=== PATIENT | male | born 1955 | race Caucasian/White ===

== ENCOUNTER 2018-09-12 19:57 | Emergency (ER) | payer OTHER, SELFPAY ==
[2018-09-12] VITALS (20 sets, daily range): BP systolic 110–136; BP diastolic 68–82; PULSE 91–105; RESP 14–31; TEMP 36.4; O2SAT 92–96
--- NOTE | 2018-09-12 20:22 | ED.GENADUL_ITS ---
Discharge Plan Disposition Patient Disposition: AGAINST MEDICAL ADVICE Condition: Stable Discharge Details Chief Complaint: Dizzy/Sync Clinical Impression: Near syncope, Hypotension, Prolonged QT interval, Dehydration, Hypokalemia, Hypomagnesemia Primary Care Provider: [facility],CT ED Provider: Zayra Robbins Home Meds and New Rx's Prescriptions: Continued nortriptyline 50 mg Capsule 50 mg PO HS RF: 0 atorvastatin 40 mg Tablet 40 mg PO DAILY RF: 0 trazodone 100 mg Tablet 300 mg PO DAILY RF: 0 hydrochlorothiazide 25 mg Tablet 25 mg PO DAILY RF: 0 lisinopril 20 mg Tablet 20 mg PO DAILY RF: 0 Discharge Instructions Instructions: Dehydration (ED) Additional Instructions: You are leaving today against medical advice. You may have life threatening medical conditions that may be go undiagnosed or untreated. Drink plenty of fluids and get plenty of rest. Supplement potassium and magnesium in your diet. Call the CT tomorrow to schedule a follow up appointment for re-evaluation and for placement of a zio patch or holter monitor. Return immediately to the emergency department with any worsening or new concerning symptoms. Discharge Data Discharge Physician: Zayra Robbins Medical Decision Making 63-year-old male with a history of hypertension, anxiety and depression who presents for near syncopal episode and hypotension at home tonight. Had an unresponsive episode per in which he was awake and looking in her but not responding to her. He then stood up and had a near syncopal episode for EMS. Systolic blood pressure per EMS 70s. Patient was given 1 L of IV fluids per EMS and his systolic BP improved to 110s. Upon arrival to ED, patient states he feels much better. Patient states he has not eaten much today, took his regular blood pressure medication as directed, gave himself his haloperidol injection, and drink 1 beer. Discussed that all of this together, may have contributed to his low blood pressure. BP on arrival much improved 115/69. Heart rate 100s. Remainder vitals within normal limits. Will place an IV, continue IV fluids, labs, urinalysis, EKG, chest x-ray, CT h ead, lactate. EKG notes a rate of 96, sinus, no acute ST findings. QTc prolonged at 490. QRS 98. 2100 --labs and imaging reviewed. Normal white blood cell count, hemoglobin. Potassium 3. Magnesium 1.6. Lactate 3.8. Troponin negative. Urinalysis notes 5-10 WBCs, negative bacteria, negative leukocyte esterase, negative nitrite. Patient has no urinary symptoms. CT head and chest x-ray negative. Discussed results at length with patient and he is requesting to leave. Discussed with patient that in the setting of syncope, hypotension, prolonged QT, would recommend admission. Patient is from the CT. He is declining [facility] at [facility] Able to obtain an EKG from the CT which noted a prolonged QT at 460 but this QT interval is more prolonged today and this is concerning based on patient's symptom presentation. The risks of and disability due to a serious pathology explained and patient fully understands and was willing to leave. AMA form signed. Patient demonstrates capacity to make decisions. Repeated lactate level or after 2 L IV fluid and is downtrending to 2.1. is at bedside and she feels comfortable with patient not wanting to stay in the hospital. Discussed with patient that we can arrange for a zio patch or Holter monitor at this time but he is declining and stating that [facility] will [facility] to [facility]. He is instructed to return here immediately with any worsening or new concerning symptoms. Medical Records Medical records reviewed: Yes I reviewed the patient's medical records. Imaging Data Radiologic Study: Radiologist's impression: XR Chest, 2 Views EXAM DATE/TIME: 09/12/2018 8:21 PM FINDINGS: Lungs: There is mild atelectasis in the left lung base. Lungs are otherwise clear. Pleural space: Unremarkable. No pleural effusion. No pneumothorax. Heart/Mediastinum: Unremarkable. No cardiomegaly. Bones/joints: No acute skeletal abnormality. IMPRESSION: Negative for acute thoracic pathology. CT Head Without Contrast EXAM DATE/TIME: 09/12/2018 8:21 PM FINDINGS: Brain: Normal. No hemorrhage. No significant white matter disease. No edema. Ventricles: Normal. No ventriculomegaly. Bones/joints: Unremarkable. No acute fracture. Sinuses: Patient is status post prior paranasal sinus surgery. There is mucoperiosteal thickening of the right maxillary sinus. There is mucosal thickening throughout the left maxillary sinus. There is mucosal thickening throughout the ethmoid air cells. Mastoid air cells: Visualized mastoid air cells are unremarkable. No mastoid effusion. Orbits: Unremarkable. Soft tissues: Unremarkable. IMPRESSION: Negative for acute intracranial pathology. Chronic sinusitis, detailed above. Lab Data Lab results reviewed: Yes I reviewed the patient's lab results. 09/12/18 20:25 Urine - Reflex from Ua Urine Culture - Pending Laboratory Tests Range/Units 09/12/18 09/12/18 09/12/18 20:22 20:22 20:22 WBC (4.4-10.8) k/cumm 8.44 RBC (4.50-6.00) m/cumm 4.33 L Hgb (13.5-17.5) g/dL 14.2 Hct (40.0-50.0) % 39.8 L MCV (80-95) fL 91.9 MCH (27.0-33.0) pg 32.8 MCHC (32.0-36.0) g/dL 35.7 RDW (11.8-14.1) % 11.8 Plt Count (130-400) x1000/uL 281 MPV (8.0-11.0) fL 9.7 Immature Gran % 0.7 Neutrophils % 46.2 Lymphocytes % 40.2 Monocytes % 10.1 Eosinophils % 2.3 Basophils % 0.5 Absolute Neutrophils (1.2-6.7) k/cumm 3.91 Absolute Lymphocytes (1.2-3.4) k/cumm 3.39 Absolute Monocytes (0.11-0.7) k/cumm 0.85 H Absolute Eosinophils (0.0-0.7) k/cumm 0.19 Absolute Basophils (0.0-0.2) k/cumm 0.04 D-Dimer (<500) ng/mlFEU 299 Sodium (136-145) mmol/L 139 Potassium (3.5-5.1) mmol/L 3.0 L Chloride (98-107) mmol/L 99 Carbon Dioxide (21.0-32.0) mmol/L 27.8 Anion Gap (3-11) mmol/L 12.2 H BUN (7-18) mg/dL 10 Creatinine (0.70-1.30) mg/dL 1.17 Estimated GFR/1.73 m2 (mL/min/1.73m2) >= 60.00 Glucose (70-100) mg/dL 143 H Lactate (0.6-1.4) mmol/l Calcium (8.5-10.1) mg/dL 8.7 Magnesium (1.8-2.4) mg/dL 1.6 L Total Bilirubin (0.2-1.0) mg/dL 0.3 AST (15-37) U/L 46 H ALT (12-78) U/L 65 Alkaline Phosphatase (46-116) U/L 77 Troponin I (0.00-0.06) ng/mL < 0.02 Total Protein (6.4-8.2) g/dL 7.1 Albumin (3.4-5.0) g/dL 3.2 L Urine Color (Yellow) Urine Clarity Urine pH (5-8) Ur Specific Franklin (1.005-1.025) Urine Protein (Negative) mg/dL Urine Ketones (Negative) mg/dL Urine Blood (Negative) Urine Nitrite (Negative) Urine Bilirubin (Negative) Urine Urobilinogen (Up TO 0.2) EU/dL Ur Leukocyte Esterase (Negative) Urine RBC (0-2) Urine WBC (0-5) HPF Ur Epithelial Cells (Negative) HPF Urine Crystals (Negative) HPF Urine Bacteria (Negative) HPF Urine Casts (Negative) LPF Urine Mucus (Negative) Ur Culture Indicated? Urine Glucose (Negative) mg/dL Urine Opiates Screen (Negative) Urine Methadone Screen (Negative) Ur Barbiturates Screen (Negative) Ur Tricyclics Screen (Negative) Ur Amphetamines Screen (Negative) U Benzodiazepines Scrn (Negative) Urine Cocaine Screen (Negative) Ur THC Screen (Negative) Range/Units 09/12/18 09/12/18 09/12/18 20:22 20:25 20:25 WBC (4.4-10.8) k/cumm RBC (4.50-6.00) m/cumm Hgb (13.5-17.5) g/dL Hct (40.0-50.0) % MCV (80-95) fL MCH (27.0-33.0) pg MCHC (32.0-36.0) g/dL RDW (11.8-14.1) % Plt Count (130-400) x1000/uL MPV (8.0-11.0) fL Immature Gran % Neutrophils % Lymphocytes % Monocytes % Eosinophils % Basophils % Absolute Neutrophils (1.2-6.7) k/cumm Absolute Lymphocytes (1.2-3.4) k/cumm Absolute Monocytes (0.11-0.7) k/cumm Absolute Eosinophils (0.0-0.7) k/cumm Absolute Basophils (0.0-0.2) k/cumm D-Dimer (<500) ng/mlFEU Sodium (136-145) mmol/L Potassium (3.5-5.1) mmol/L Chloride (98-107) mmol/L Carbon Dioxide (21.0-32.0) mmol/L Anion Gap (3-11) mmol/L BUN (7-18) mg/dL Creatinine (0.70-1.30) mg/dL Estimated GFR/1.73 m2 (mL/min/1.73m2) Glucose (70-100) mg/dL Lactate (0.6-1.4) mmol/l 3.8 H Calcium (8.5-10.1) mg/dL Magnesium (1.8-2.4) mg/dL Total Bilirubin (0.2-1.0) mg/dL AST (15-37) U/L ALT (12-78) U/L Alkaline Phosphatase (46-116) U/L Troponin I (0.00-0.06) ng/mL Total Protein (6.4-8.2) g/dL Albumin (3.4-5.0) g/dL Urine Color (Yellow) Yellow Urine Clarity Clear Urine pH (5-8) 7.0 Ur Specific Franklin (1.005-1.025) 1.015 Urine Protein (Negative) mg/dL 30 H Urine Ketones (Negative) mg/dL Negative Urine Blood (Negative) Trace-lysed H Urine Nitrite (Negative) Negative Urine Bilirubin (Negative) Negative Urine Urobilinogen (Up TO 0.2) EU/dL 0.2 Ur Leukocyte Esterase (Negative) Negative Urine RBC (0-2) 0-2 Urine WBC (0-5) HPF 5-10 Ur Epithelial Cells (Negative) HPF Few Urine Crystals (Negative) HPF Urine Bacteria (Negative) HPF Negative Urine Casts (Negative) LPF 10-20 hyaline Urine Mucus (Negative) Trace Ur Culture Indicated? Yes Urine Glucose (Negative) mg/dL Negative Urine Opiates Screen (Negative) Negative Urine Methadone Screen (Negative) Negative Ur Barbiturates Screen (Negative) Negative Ur Tricyclics Screen (Negative) Positive Ur Amphetamines Screen (Negative) Negative U Benzodiazepines Scrn (Negative) Negative Urine Cocaine Screen (Negative) Negative Ur THC Screen (Negative) Positive Range/Units 09/12/18 21:13 WBC (4.4-10.8) k/cumm RBC (4.50-6.00) m/cumm Hgb (13.5-17.5) g/dL Hct (40.0-50.0) % MCV (80-95) fL MCH (27.0-33.0) pg MCHC (32.0-36.0) g/dL RDW (11.8-14.1) % Plt Count (130-400) x1000/uL MPV (8.0-11.0) fL Immature Gran % Neutrophils % Lymphocytes % Monocytes % Eosinophils % Basophils % Absolute Neutrophils (1.2-6.7) k/cumm Absolute Lymphocytes (1.2-3.4) k/cumm Absolute Monocytes (0.11-0.7) k/cumm Absolute Eosinophils (0.0-0.7) k/cumm Absolute Basophils (0.0-0.2) k/cumm D-Dimer (<500) ng/mlFEU Sodium (136-145) mmol/L Potassium (3.5-5.1) mmol/L Chloride (98-107) mmol/L Carbon Dioxide (21.0-32.0) mmol/L Anion Gap (3-11) mmol/L BUN (7-18) mg/dL Creatinine (0.70-1.30) mg/dL Estimated GFR/1.73 m2 (mL/min/1.73m2) Glucose (70-100) mg/dL Lactate (0.6-1.4) mmol/l 2.1 H Calcium (8.5-10.1) mg/dL Magnesium (1.8-2.4) mg/dL Total Bilirubin (0.2-1.0) mg/dL AST (15-37) U/L ALT (12-78) U/L Alkaline Phosphatase (46-116) U/L Troponin I (0.00-0.06) ng/mL Total Protein (6.4-8.2) g/dL Albumin (3.4-5.0) g/dL Urine Color (Yellow) Urine Clarity Urine pH (5-8) Ur Specific Franklin (1.005-1.025) Urine Protein (Negative) mg/dL Urine Ketones (Negative) mg/dL Urine Blood (Negative) Urine Nitrite (Negative) Urine Bilirubin (Negative) Urine Urobilinogen (Up TO 0.2) EU/dL Ur Leukocyte Esterase (Negative) Urine RBC (0-2) Urine WBC (0-5) HPF Ur Epithelial Cells (Negative) HPF Urine Crystals (Negative) HPF Urine Bacteria (Negative) HPF Urine Casts (Negative) LPF Urine Mucus (Negative) Ur Culture Indicated? Urine Glucose (Negative) mg/dL Urine Opiates Screen (Negative) Urine Methadone Screen (Negative) Ur Barbiturates Screen (Negative) Ur Tricyclics Screen (Negative) Ur Amphetamines Screen (Negative) U Benzodiazepines Scrn (Negative) Urine Cocaine Screen (Negative) Ur THC Screen (Negative) ECG Data Attestation: I personally reviewed and interpreted this ECG (s) as follows: Interpretation: Rate of 96, sinus, no acute ST elevation or depression. QTc 490. QRS 98. HPI General Mode of arrival: ambulatory . Date/Time Provider Initiated Documentation: 09/12/18 20:01 . Limitations to Documentation: no limitations . Information obtained by: patient . HPI Narrative: Patient is a 63 yo male with a history of hypertension, depression and anxiety who presented for syncopal episode per EMS at home today. states that patient did not have a syncopal episode but states that she was sitting next to patient on the couch when she started talking to him and he was not responding to her. She states his eyes were open and he somewhat slumped his head to the side and did not respond to her. She states he was breathing and this lasted a few minutes and then he became more awake. She states upon EMS arrival, they attempted to stand up milton ent and his legs gave out. Patient states he did not have a syncopal episode at any time. Patient states he does not remember the unresponsive episode when talking to his . He states he does remember standing up and his legs giving out. EMS states that when patient became dizzy with leg weakness upon standing, his blood pressure was a systolic of 70s. Patient was given a total of 1 L IV f luids per EMS and his BP improved to 110s. Patient states that he did not eat much today. He also states he gave himself his monthly injection of his haloperidol today. He states he took his blood pressure medication as directed. He also states he drank one beer today. Patient states he drinks 1-3 beers daily. Patient denies any fever, vomiting, diarrhea, chest pain, shortness of breath, headache, urinary symptoms, recent travel or other new medications. He does admit to previous history of syncope in the past few years in which he was evaluated at the CT and had a Holter monitor of which he was not given the results but assumed were negative. Related Data Home Medications Medication Instructions Recorded Confirmed atorvastatin 40 mg PO DAILY 09/12/18 09/12/18 hydrochlorothiazide 25 mg PO DAILY 09/12/18 09/12/18 lisinopril 20 mg PO DAILY 09/12/18 09/12/18 nortriptyline 50 mg PO HS 09/12/18 09/12/18 trazodone 300 mg PO DAILY 09/12/18 09/12/18 Allergies Allergy/AdvReac Type Severity Reaction Status Date / Time No Known Allergies Allergy Unverified 09/12/18 20:19 General Stated Complaint: Dizzy/Sync MANINDER: 2 Review of Systems Review of Systems All systems reviewed & are unremarkable except as noted in HPI and below Constitutional Reports as per HPI, Denies chills and Denies fever(s) Eyes Denies blurry vision ENT Reports dizziness, Denies sore throat and Denies throat swelling Cardiovascular Denies chest pain, Reports syncope (near syncope) and Denies dyspnea Respiratory Denies cough and Denies dyspnea Gastrointestinal Denies abdominal pain, Denies diarrhea and Denies vomiting Genitourinary Denies hematuria and Denies dysuria Musculoskeletal Denies back pain and Denies numbness Integumentary/Breasts Denies lesions and Denies rash Neurologic Reports dizziness, Reports syncope (near syncope), Denies focal weakness and Denies numbness Allergic/Immunologic Denies throat swelling FOR[facility]LY [facility], [facility] Medical History Anxiety (Chronic) Depression (Chronic) HTN (hypertension) (Chronic) Surgical History History of hip surgery (Acute) History of knee surgery (Acute) History of sinus surgery (Acute) H/O shoulder surgery (Chronic) History of hernia repair (Chronic) Social History Smoking/Tobacco Use Status: Never Alcohol Intake: current Alcohol Intake frequency: 0-2 drinks per day Alcohol type: beer Substance use type: does not use Additional Social history: unable to assess Exam Const General: cooperative and healthy appearing Orientation: alert and awake HENMT Head: normal to inspection Ears: hearing grossly normal bilaterally, external ears normal and TM's normal bilaterally General nose exam: external nose normal Face and sinus: normal facial exam Mouth: oral mucosae normal Teeth and gingiva: dentition normal Throat: posterior oropharynx normal Eyes General: appearance normal, both eyes and all related structures Eyelids: eyelids normal Pupils: PERRL EOM: EOM intact bilaterally Neck Neck: normal visual inspection Lymphatic: no lymphadenopathy noted Chest Chest: normal inspection of the chest Resp Effort & Inspection: normal respiratory effort and able to speak in complete sentences Auscultation: clear to auscultation bilaterally Cardio Rate: regular rate Rhythm: regular rhythm GI Inspection: normal to inspection Palpation: soft, not firm, no guarding, no hepatosplenomegaly, no masses and nontender Auscultation: normal bowel sounds Back/Spine/Pelvis Back: no CVA tenderness Skin General skin exam: no rashes or lesions noted Neuro General: alert and awake Cognition: normal cognition Speech: speech normal Gait: normal gait Motor: muscle tone normal throughout Sensory Exam: no sensory deficits noted Extrem General: normal to inspection, full ROM and normal capillary refill Psych Appearance: grossly normal Mental Status: mental status grossly normal Speech and Movement: speech and movement normal Affect: normal affect Thought Process: normal Course Vital Signs Temperature 97.5 F L 09/12/18 20:08 Pulse 102 H 09/12/18 20:08 Respiratory Rate 21 09/12/18 20:08 Blood Pressure 115/69 09/12/18 20:08 Pulse Oximetry 96 09/12/18 20:08 Temperature 97.5 F L 09/12/18 20:08 Temperature Source Temporal Artery Scan 09/12/18 20:08 Pulse 102 H 09/12/18 20:08 Respiratory Rate 31 H 09/12/18 20:16 Respiratory Effort 09/12/18 20:16 Blood Pressure 115/69 09/12/18 20:08 Blood Pressure Position Sitting 09/12/18 20:08 Pulse Oximetry 96 09/12/18 20:08 Oxygen Delivery Method Room Air 09/12/18 20:08 Oxygen Flow Rate 0 09/12/18 20:08
[2018-09-12 20:29] LABS: Abs Immature Grans 0.06 k/cumm (0.0-0.09); Absolute Basophil Count 0.04 k/cumm (0.0-0.2); Absolute Eosinophil Count 0.19 k/cumm (0.0-0.7); Absolute Lymphocyte Count 3.39 k/cumm (1.2-3.4); Absolute Monocyte Count 0.85 k/cumm (0.11-0.7); Absolute Neutrophil Count 3.91 k/cumm (1.2-6.7); Basophils % 0.5; Eosinophils % 2.3; HCT 39.8 % (40.0-50.0); HGB 14.2 g/dL (13.5-17.5); Immature Grans % 0.7; Lactate-non-spesis 3.8 mmol/l (0.6-1.4); Lymphocytes % 40.2; Mean Corp. HGB Concentration 35.7 g/dL (32.0-36.0); Mean Corpuscular Hemoglobin 32.8 pg (27.0-33.0); Mean Corpuscular Volume 91.9 fL (80-95); Mean Platelet Volume 9.7 fL (8.0-11.0); Monocytes % 10.1; Neutrophils % 46.2; Platelet Count 281 x1000/uL (130-400); RBC 4.33 m/cumm (4.50-6.00); RBC Distribution Width 11.8 % (11.8-14.1); White Blood Cell Count 8.44 k/cumm (4.4-10.8)
[2018-09-12 20:31] LABS: Bilirubin Negative (Negative); Blood Trace-lysed (Negative); Clarity Clear; Glucose Negative (Negative); Ketones Negative (Negative); Leukocyte Esterase Negative (Negative); Nitrite Negative (Negative); Specific Gravity 1.015 (1.005-1.025); Urobilinogen 0.2 EU/dL (Up TO 0.2)
[2018-09-12 20:41] LABS: Bacteria Negative HPF (Negative); Epithelial Cells Few HPF (Negative); Mucus Trace (Negative); RBC 0-2 (0-2)
[2018-09-12 20:42] LABS: C & S Indicated? Yes; Casts 10-20 Hyaline LPF (Negative)
--- NOTE | 2018-09-12 20:45 | DI.COMBO_ITS ---
SYMPTOM/DIAGNOSIS: SYNCOPE NONCONTRAST HEAD CT: There is no evidence of an intra/extra-axial hemorrhage, mass or fluid collection. The ventricles are normal. There is no skull fracture. Note is made of the patient being status post sinus surgery and there is mucoperiosteal thickening involving the right maxillary antrum. Also mucosal thickening is noted involving the left maxillary sinus and ethmoid sinus. There is no evidence of a mastoid effusion. The orbits are unremarkable. The soft tissues are unremarkable. IMPRESSION: No evidence of an acute intracranial abnormality. PA AND LATERAL CHEST: There are some small regions of scarring or atelectasis involving the left lower lobe. The lungs are otherwise clear. There is no evidence of a pleural effusion or pneumothorax. The heart is not enlarged. No acute bony abnormality is apparent. IMPRESSION: There is no evidence of acute cardiopulmonary disease.
[2018-09-12 20:50] LABS: ALT 65 U/L (12-78); AST 46 U/L (15-37); Albumin 3.2 g/dL (3.4-5.0); Alkaline Phosphatase 77 U/L (46-116); Anion Gap 12.2 mmol/L (3-11); BUN 10 mg/dL (7-18); Bilirubin, Total 0.3 mg/dL (0.2-1.0); CO2 27.8 mmol/L (21.0-32.0); CREATININE 1.17 mg/dL (0.70-1.30); Calcium 8.7 mg/dL (8.5-10.1); Chloride 99 mmol/L (98-107); Glucose 143 mg/dL (70-100); Magnesium 1.6 mg/dL (1.8-2.4); Sodium 139 mmol/L (136-145); Total Protein 7.1 g/dL (6.4-8.2)
[2018-09-12 20:52] LABS: Troponin I < 0.02 ng/mL (0.00-0.06)
[2018-09-12 21:00] LABS: D-Dimer 299 ng/mlFEU (<500)
[2018-09-12] MEDS: Normal Saline 1,000 ML 1000 ML IV (21:06)
[2018-09-12] MEDS: Normal Saline 1,000 ML 150 ML IV (21:06)
[2018-09-12] MEDS: Potassium Chloride 20 MEQ TABCR 40 MEQ PO (21:15)
[2018-09-12] MEDS: POTASSIUM CHLORIDE 10 MEQ/100 ML BAG 100 MEQ IVPB (21:16)
[2018-09-12] MEDS: MAGNESIUM SULFATE 1 GM/100 ML BAG IVPB (21:17)
--- NOTE | 2018-09-12 21:17 | DI.VRAD_ITS ---
EXAM: CT Head Without Contrast EXAM DATE/TIME: 09/12/2018 8:21 PM CLINICAL HISTORY: 63 years old, male; Signs and symptoms; Other: Syncope; Patient HX: Syncope, did not hit head TECHNIQUE: Imaging protocol: Axial computed tomography images of the head/brain without contrast. Coronal and sagittal reformatted images were created and reviewed. Radiation optimization: All CT scans at this facility use at least one of these dose optimization techniques: automated exposure control; mA and/or kV adjustment per patient size (includes targeted exams where dose is matched to clinical indication); or iterative reconstruction. COMPARISON: No relevant prior studies available. FINDINGS: Brain: Normal. No hemorrhage. No significant white matter disease. No edema. Ventricles: Normal. No ventriculomegaly. Bones/joints: Unremarkable. No acute fracture. Sinuses: Patient is status post prior paranasal sinus surgery. There is mucoperiosteal thickening of the right maxillary sinus. There is mucosal thickening throughout the left maxillary sinus. There is mucosal thickening throughout the ethmoid air cells. Mastoid air cells: Visualized mastoid air cells are unremarkable. No mastoid effusion. Orbits: Unremarkable. Soft tissues: Unremarkable. IMPRESSION: Negative for acute intracranial pathology. Chronic sinusitis, detailed above. Dictated and Authenticated by: Josef Kennedy MD. Ordering:CARROLL Iverson MD
--- NOTE | 2018-09-12 21:17 | DI.VRAD_ITS ---
EXAM: XR Chest, 2 Views EXAM DATE/TIME: 09/12/2018 8:21 PM CLINICAL HISTORY: 63 years old, male; Signs and symptoms; Other: Syncope TECHNIQUE: Imaging protocol: XR of the chest, 2 views. COMPARISON: No relevant prior studies available. FINDINGS: Lungs: There is mild atelectasis in the left lung base. Lungs are otherwise clear. Pleural space: Unremarkable. No pleural effusion. No pneumothorax. Heart/Mediastinum: Unremarkable. No cardiomegaly. Bones/joints: No acute skeletal abnormality. IMPRESSION: Negative for acute thoracic pathology. Dictated and Authenticated by: Josef Kennedy MD. Ordering:CARROLL Iverson MD
[2018-09-12 21:23] LABS: *AMPHETAMINES SCREEN URINE Negative (Negative); *BARBITURATES SCREEN URINE Negative (Negative); *BENZODIAZEPINES SCREEN URINE Negative (Negative); Cannabinoids THC POSITIVE (Negative); Cocaine Screen,Urine Negative (Negative); METHADONE URINE SCREEN Negative (Negative); OPIATES URINE SCREEN Negative (Negative)
[2018-09-12 21:25] LABS: Tricyclic Antidepressants POSITIVE (Negative)
[2018-09-12 21:47] LABS: Lactate-non-spesis 2.1 mmol/l (0.6-1.4)
--- NOTE | 2018-09-13 10:36 | CMPROGNOTE_ITS ---
Care Management Progress Note 09/13-Brant presented to the ED for near syncopal episode at home and hypotension. Per Dr. Robbins, the patient declined admission at [facility]. Patient left AMA. Called Brant and he states he is doing better today. Feeling fine. Brant states [facility] is calling [facility] to get [facility] with his primary care provider. Brant has this CM's contact information if further assistance is needed.
== END 2018-09-12 22:20 | disposition left against medical advice (07) ==
PROVIDERS: Emergency Provider Physician Assistant
DX: R55 Syncope and collapse (principal); I95.89 Other hypotension; E86.0 Dehydration; E83.42 Hypomagnesemia; E87.6 Hypokalemia; R94.31 Abnormal electrocardiogram [ECG] [EKG]; I10 Essential (primary) hypertension
CPT/HCPCS: 36415; 80053; 80307; 93005; 96361; 96365; 96368; 99285; 70450; 71046; 81003; 81015; 83605; 83735; 84484; 85025; 85379; 87086; 93010; J3475; J3480

== ENCOUNTER 2020-08-07 10:24 | Outpatient (CLI) | payer OTHER, SELFPAY ==
[2020-08-08 11:34] LABS: COVID-19 RT-PCR UVMMC Result Negative (Negative)
== END 2020-08-07 10:25 | disposition home or self-care (01) ==
LOC: LBO 10:25
PROVIDERS: Visit Provider Nurse Practitioner Gerontology
DX: Z20.822 Contact with and (suspected) exposure to COVID-19 (principal); R05 Cough
CPT/HCPCS: U0003

== ENCOUNTER 2020-11-16 08:41 | Emergency (ER) | payer OTHER, SELFPAY ==
[2020-11-16] VITALS (74 sets, daily range): BP systolic 107–200; BP diastolic 56–126; PULSE 40–100; RESP 10–29; TEMP 36.4–37.1; O2SAT 89–99
--- NOTE | 2020-11-16 08:45 | RT.EKG_ITS ---
APPROVED REPORT Exam: Resting ECG Reason for Exam: nausea Patient Location: E HR:46 bpm ECG Measurements Heart Rate 46 AXIS WI 165 P 7 QRSd 95 QRS 67 QT 467 T 57 QTc 409 Conclusion Sinus bradycardia...rate< 60 Low voltage, extremity leads...all extremity leads <0.5mV. No STEMI. I have reviewed and interpreted ECG and agree with software generated interpretation.
--- NOTE | 2020-11-16 08:58 | W.ED.GENAD ---
Discharge Plan Disposition Patient Disposition: [facility] Condition: Poor Discharge Details Chief Complaint: Nausea/Vomit/Diar Clinical Impression: Acute cholecystitis Primary Care Provider: [facility] Provider: Barbi Rider [place] Meds and New Rx's Prescriptions: No Action nortriptyline 50 mg Capsule 150 mg PO HS RF: 0 atorvastatin 40 mg Tablet 40 mg PO DAILY RF: 0 trazodone 100 mg Tablet 300 mg PO DAILY RF: 0 hydrochlorothiazide 25 mg Tablet 25 mg PO DAILY RF: 0 lisinopril 20 mg Tablet 20 mg PO DAILY RF: 0 Discharge Data Discharge Date/Time-TO BE ENTERED AT DEPARTURE: 11/16/20 16:45 Medical Decision Making Patient is a pleasant 65-year-old gentleman presenting today with chief complaint of abdominal pain, nausea, vomiting after eating a taco yesterday. He states that a few hours after eating this, right upper quadrant pain began. States that he had a few loose bowel movements last night all of which were nonbloody. No bowel movement today. States he woke up around 3 AM with nausea and vomiting. Has continued to have some dry heaving later into the morning. She denies any fevers or chills. Denies any headache, lightheadedness. No pain in his back. No change in urinary habits. Past surgical history pertinent for hernia. Patient has a known umbilical hernia which he states is being monitored with plan for surgical intervention after weight loss. Past medical history is pertinent for anxiety, depression, hypertension. Patient drinks several bottles of wine a week On exam, patient appears nontoxic. Lungs are clear, normal cardiac exam. Abdomen is soft, no peritoneal findings. Normal bowel sounds. He is tender in the right upper quadrant but negative Jackson sign. No CVA tenderness. Patient does have enlarged liver. Concern at this time primarily for gallbladder disease based on the patient's area of discomfort. Also considered food induced gastroenteritis. Low concern for ACS. However, given his persistent nausea developed with past medical history of prolonged QT syndrome with previous syncope, will obtain EKG as well as troponin. Discussed this plan with the patient and he is in agreement this plan. Will give pain medication and antiemetics. ECG was reviewed by Dr. Robbins. Patient is in sinus bradycardia with a rate of 46. No acute ischemic changes are noted. QTC 409. Patient has not been bradycardic historically but is asymptomatic with this. He has this could be associated with a little reaction with his nausea and abdominal pain. We will continue resuscitation and monitor him. Labs reviewed. Patient is a white count of 12.17. CMP otherwise unremarkable. Stable H&H. CMP significant for BUN of 20. Glucose 180. Troponin within normal limits. Lipase within normal limits. LFTs WNL. Patient reports feeling improved. Will send for CT. Ultrasound unavailable at this time. Patient is feeling improved, will give morning medications which do include antihypertensives. FINDINGS: Limitations: None. Lungs: Unremarkable. Liver: 3 mm low-density lesion in the liver most likely a cyst. Gallbladder and bile ducts: Gallstones without evidence of acute cholecystitis or choledocholithiasis. Pancreas: Normal. No ductal dilation. Spleen: Small splenule without splenomegaly. Adrenal glands: Normal. No mass. Kidneys and ureters: Mild renal volume loss without stone or hydronephrosis. Low-density lesion at 6 mm in the left kidney may be a small cyst. Similar lesion on the right at 8 mm. No renal or ureteral stones and no hydronephrosis. Stomach and bowel: Tiny duodenal diverticulum of no clinical significance. The stomach is poorly distended. Sigmoid diverticulosis without convincing evidence of acute diverticulitis. Low-density wall thickening of the terminal ileum without surrounding fatty stranding possibly related to remote inflammatory changes. Appendix: No evidence of acute appendicitis. Intraperitoneal space: Unremarkable. No free air. No significant fluid collection. Vasculature: Atherosclerotic changes of the aortoiliac system. Lymph nodes: No gross lymphadenopathy. Urinary bladder: The urinary bladder is only partially distended. No stones. Reproductive: The prostate is enlarged. Bones/joints: No acute fracture. Degenerative changes most pronounced at L5-S1 Soft tissues: Tiny hernia. Fatty umbilical and periumbilical hernias without bowel. Inguinal rings are with fat bilaterally. Small amount of fluid inguinal canal on the right. IMPRESSION: 1. Gallstones without evidence of acute cholecystitis. Consider ultrasound and/or HIDA scan follow-up. 2. Renal lesions likely cysts not requiring follow-up. 3. No bowel obstruction or free air. 4. Body wall hernias without bowel. Discussed the findings with the patient. Patient reports that his nausea is recurring. Will augment Phenergan with Compazine and Benadryl and reassess. Patient also reports that his pain is increasing is now 6 out of 10, will give IV acetaminophen. Heart rate has been very labile going as low as high 30s to 60s. Patient continues to deny any chest shortness of breath, lightheadedness. Blood pressure is improving. Consulted with Dr. Lang. She and I discussed imaging, labs and presentation. She believes that this is likely associated with cholecystitis and will come in to evaluate the patient and make further plan. She is also requested that I speak with hospitalist regarding the patient's heart rate. We will continue to monitor the patient's heart rate. This really seems to be symptom driven. His heart rate has come up to a more normal level when his pain and nausea is Monocryl. However, noted symptoms include, his heart rate will drop. This further has a concern for vasovagal source of his bradycardia. Patient continues to be asymptomatic with the bradycardia. He does not have any evidence of block. Repeat troponin and repeat EKG pending. Repeat troponin within normal limits. Repeat EKG shows again sinus bradycardia but no evidence of block or acute ischemic pathology. Spoke with Dr. Null regarding patient's heart rate and presentation. Will speak with him again after the patient's that evaluated by Dr. Lang. Dr. Lang evaluated the patient and reviewed imaging. She is concerned that it is consistent with cholecystitis and thickening of GB wall. She evaluated the patient, he would like to go to [facility] for further care. She has ordered antibiotics in preparation for surgical intervention. Consulted with Dr. More with general surgery at the [facility] in [place]. Consulted general surgery, Dr. Echeverria. They will monitor today and plan for possible surgical intervention tomorrow. Per transfer center, they are able to accept the patient as we arrange for transportation. Will obtain rapid Covid testing prior to being transferred in the event patient will need surgical intervention. Patient's pain began to increase again. Was given 1 mg of Dilaudid with good relief. Patient feels that this is adequate for transfer time. Transferred via EMS to [facility] for definitive care of his cholecystitis. HPI General Mode of arrival: ambulatory. Date/Time Provider Initiated Documentation: 11/16/20 08:41. Limitations to Documentation: no limitations. Information obtained by: patient, RN notes reviewed and old records reviewed. History of Present Illness 65 year old M presents to the emergency department with the chief complaint of N/V, abdominal pain, described as moderate, with intensity rated at 7. Quality is described as burning, and is localized to the abdomen. Patient reports no radiation. Patient started experiencing this day(s) (1) and it has been constant. No relieving factors improve symptom(s), No exacerbating factors reported . Patient notes no other symptoms., loss of appetite and nausea/vomiting; denies chest pain, diaphoresis, fever/chills, rash and shortness of breath. Patient did receive the following treatments prior to arrival, none Related Data Home Medications Medication Instructions Recorded Confirmed atorvastatin 40 mg PO DAILY 09/12/18 11/16/20 hydrochlorothiazide 25 mg PO DAILY 09/12/18 11/16/20 lisinopril 20 mg PO DAILY 09/12/18 11/16/20 nortriptyline 150 mg PO HS 09/12/18 11/16/20 trazodone 300 mg PO DAILY 09/12/18 11/16/20 Allergies Allergy/AdvReac Type Severity Reaction Status Date / Time No Known Allergies Allergy Unverified 11/16/20 08:47 General Stated Complaint: Nausea/Vomit/Diar MANINDER: 3 Review of Systems Constitutional Constitutional: Reports as per HPI, Denies chills, Denies fatigue, Denies fever(s) and Denies headache(s) ENT Ears, Nose, Mouth, and Throat: Denies headache(s) Cardiovascular Cardiovascular: Reports as per HPI, Denies chest pain and Denies dyspnea Respiratory Respiratory: Reports as per HPI, Denies cough and Denies dyspnea Gastrointestinal Gastrointestinal: Reports as per HPI Genitourinary Genitourinary: Denies system reviewed and no additional complaints, except as documented (patient denies any change in urinary habits) Musculoskeletal Musculoskeletal: Reports as per HPI and Denies back pain Integumentary/Breasts Skin/Breast: Reports as per HPI and Denies rash Neurologic Neurologic: Reports as per HPI and Denies headache(s) Endocrine Endocrine: Denies fatigue [facility] Medical History (Updated 11/17/20 @ 14:42 by MILI Gibson) Anxiety Depression HTN (hypertension) Surgical History H/O shoulder surgery History of hernia repair History of hip surgery History of knee surgery History of sinus surgery Social History (Reviewed 11/16/20 @ 13:03 by SIRENA Lentz Smoking/Tobacco Use Status: Never Smoking risk assessment performed?: Yes Alcohol Intake: current Alcohol Intake frequency: 0-2 drinks per day Alcohol type: beer and wine Substance use type: does not use Do you feel safe at home: Yes Do you feel safe in your relationship?: Yes Exam Const General: cooperative, healthy appearing, comfortable, no acute distress and well developed Nutritional Appearance: average body habitus and well nourished Orientation: alert and awake [facility] Head: normal to inspection Mouth: moist mucous membranes Resp Effort & Inspection: normal respiratory effort, able to speak in complete sentences and no respiratory distress Auscultation: clear to auscultation bilaterally, no rales, no rhonchi and no wheezes Cardio Rate: regular rate Rhythm: regular rhythm Heart Sounds: S1 normal and S2 normal GI Inspection: normal to inspection Palpation: soft, not firm, no guarding, hepatomegaly, hernia umbilical (no indications of strangulation on exam), no pulsatile masses, not rigid and tender in the RUQ; not at McBurney's point, Jackson's sign negative and with no rebound tenderness Percussion: normal to percussion Auscultation: normal bowel sounds Back/Spine/Pelvis Back: no CVA tenderness Skin General skin exam: no rashes or lesions noted Trauma: no lacerations or abrasions Neuro General: patient alert and patient awake Cognition: normal cognition Speech: speech normal Gait: normal gait Psych Appearance: grossly normal and well kempt Mental Status: mental status grossly normal Speech and Movement: speech and movement normal Course Vital Signs Vital signs: Vital Signs Temperature 36.4 C L 11/16/20 08:45 Pulse 60 11/16/20 08:45 Respiratory Rate 20 11/16/20 08:45 Blood Pressure 183/74 H 11/16/20 08:45 Pulse Oximetry 97 11/16/20 08:45 Temperature 36.4 C L 11/16/20 08:45 Temperature Source Skin 11/16/20 08:45 Pulse 60 11/16/20 08:45 Respiratory Rate 20 11/16/20 08:45 Respiratory Effort Non-Labored 11/16/20 08:48 Blood Pressure 183/74 H 11/16/20 08:45 Blood Pressure Position Sitting 11/16/20 08:45 Pulse Oximetry 97 11/16/20 08:45 Oxygen Delivery Method Room Air 11/16/20 08:45 Oxygen Flow Rate 0 11/16/20 08:45 Pain Level 7 11/16/20 08:45
[2020-11-16 09:07] LABS: Abs Immature Grans 0.03 10^3/uL (0.0-0.06); Absolute Basophil Count 0.05 10^3/uL (0.0-0.2); Absolute Eosinophil Count 0.01 10^3/uL (0.0-0.7); Absolute Lymphocyte Count 1.44 10^3/uL (1.2-3.4); Absolute Neutrophil Count 10.28 10^3/uL (1.2-6.7); Basophils % 0.4; Eosinophils % 0.1; HCT 44.6 % (40.0-50.0); HGB 15.7 g/dL (13.5-17.5); Immature Grans % 0.2; Lymphocytes % 11.8; MCH 31.6 pg (27.0-33.0); MCHC 35.2 % (32.0-36.0); MCV 89.7 fL (80-95); MPV 9.2 fL (8.0-11.0); Neutrophils % 84.5; Nucleated RBC 0 %; Platelet Count 356 10^3/uL (130-400); RBC 4.97 10^6/uL (4.36-5.78); RDW 11.7 % (11.8-14.1); RDW-SD 38.3 fL; WBC 12.17 10^3/uL (4.4-10.8)
[2020-11-16 09:08] LABS: Absolute Monocyte Count 0.37 10^3/uL (0.1-0.8)
[2020-11-16] MEDS: Normal Saline 1,000 ML 1000 ML IV (09:20)
[2020-11-16 09:30] LABS: ALT 40 U/L (16-63); AST 24 U/L (15-37); Albumin 4.1 g/dL (3.4-5.0); Alkaline Phosphatase 83 U/L (46-116); Anion Gap 10.3 mmol/L (3-11); BUN 20 mg/dL (7-18); Bilirubin, Total 0.9 mg/dL (0.2-1.0); CO2 28.7 mmol/L (21.0-32.0); CREATININE 1.1 mg/dL (0.70-1.30); Calcium 9.6 mg/dL (8.5-10.1); Chloride 100 mmol/L (98-107); Glucose 180 mg/dL (74-106); Lipase 65 U/L (73-393); Magnesium 1.9 mg/dL (1.8-2.4); Potassium 3.6 mmol/L (3.5-5.1); Sodium 139 mmol/L (136-145); Total Protein 8.1 g/dL (6.4-8.2)
[2020-11-16 09:33] LABS: Troponin I < 0.05 ng/mL (<0.06)
[2020-11-16] MEDS: Normal Saline - Diluent 50 ML VIAL IV (09:39)
[2020-11-16] MEDS: Omnipaque 350 MG/ML 100 ML BTL IJ (09:39)
[2020-11-16] MEDS: Normal Saline Flush 10 ML SYR IVP ×2 (09:41→13:13)
--- NOTE | 2020-11-16 09:56 | DI.CT_ITS ---
Exam(s) CT ABDOMEN PELVIS W EXAM: CT ABDOMEN PELVIS W CLINICAL HISTORY: RUQ pain after taco TECHNIQUE: COMPARISON: No exams were available for comparison FINDINGS: CT examination of the abdomen and pelvis was performed with bolus infusion of 100 cc of Omnipaque 350 . Images obtained through the lung bases are unremarkable. The liver appears normal with no evidence of a focal mass except for a less than 1 cm in diameter pre sumed cyst of the left hepatic lobe.. Spleen is unremarkable in appearance.. There is cholelithiasis without evident gallbladder wall thickening or pericholecystic fluid collecti on. No biliary dilatation seen. Pancreas is unremarkable in appearance. Adrenals appear normal bilaterally. Kidneys appear normal with no evidence of renal mass, hydronephrosis, or nephrolithiasis. Probable t iny bilateral renal cysts noted. Unremarkable bladder. There is no evidence of abdominal or pelvic adenopathy. Abdominal aorta is of normal diameter and no abnormality is seen involving major visceral branches.. Appendix is normal. No evidence diverticulitis or bowel obstruction. Small bilateral fat containing inguinal hernias noted. Fat containing umbilical hernia noted.. Impression: Cholelithiasis, no evidence of acute intra-abdominal process. RADIATION DOSE DELIVERED: 809.56mGy.cm Total DLP 809.56mGy.cm Total DLP DATA REPOSITORY: All CT scans at this facility are submitted to the National Radiology Data Registry (NRDR) Dose Index Registry (DIR) with the [employer] (A[employer]). RADIATION OPTIMIZATION: All CT scans at this facility use at least one of these dose optimization te chniques: automated exposure control; mA and/or kV adjustment per patient size (includes targeted exa ms where dose is matched to clinical indication); or iterative reconstruction.
--- NOTE | 2020-11-16 10:20 | DI.VRAD_ITS ---
PROCEDURE INFORMATION: Exam: CT Abdomen And Pelvis With Contrast Exam date and time: 11/16/2020 9:07 AM Age: 65 years old Clinical indication: Abdominal pain; Localized; Right upper quadrant (ruq); Patient HX: Ruq pain after eating taco. Family HX of gallbladder problems. TECHNIQUE: Imaging protocol: Computed tomography of the abdomen and pelvis with contrast. Radiation optimization: All CT scans at this facility use at least one of these dose optimization techniques: automated exposure control; mA and/or kV adjustment per patient size (includes targeted exams where dose is matched to clinical indication); or iterative reconstruction. Contrast material: OMNI-PAQUE 350; Contrast volume: 100 ml; Contrast route: INTRAVENOUS (IV); COMPARISON: No relevant prior studies available. FINDINGS: Limitations: None. Lungs: Unremarkable. Liver: 3 mm low-density lesion in the liver most likely a cyst. Gallbladder and bile ducts: Gallstones without evidence of acute cholecystitis or choledocholithiasis. Pancreas: Normal. No ductal dilation. Spleen: Small splenule without splenomegaly. Adrenal glands: Normal. No mass. Kidneys and ureters: Mild renal volume loss without stone or hydronephrosis. Low-density lesion at 6 mm in the left kidney may be a small cyst. Similar lesion on the right at 8 mm. No renal or ureteral stones and no hydronephrosis. Stomach and bowel: Tiny duodenal diverticulum of no clinical significance. The stomach is poorly distended. Sigmoid diverticulosis without convincing evidence of acute diverticulitis. Low-density wall thickening of the terminal ileum without surrounding fatty stranding possibly related to remote inflammatory changes. Appendix: No evidence of acute appendicitis. Intraperitoneal space: Unremarkable. No free air. No significant fluid collection. Vasculature: Atherosclerotic changes of the aortoiliac system. Lymph nodes: No gross lymphadenopathy. Urinary bladder: The urinary bladder is only partially distended. No stones. Reproductive: The prostate is enlarged. Bones/joints: No acute fracture. Degenerative changes most pronounced at L5-S1 Soft tissues: Tiny hernia. Fatty umbilical and periumbilical hernias without bowel. Inguinal rings are with fat bilaterally. Small amount of fluid inguinal canal on the right. IMPRESSION: 1. Gallstones without evidence of acute cholecystitis. Consider ultrasound and/or HIDA scan follow-up. 2. Renal lesions likely cysts not requiring follow-up. 3. No bowel obstruction or free air. 4. Body wall hernias without bowel. Dictated and Authenticated by: Austin Kaye MD. Ordering:ANTHONY Landon MD
[2020-11-16] MEDS: hydroCHLOROthiazide 25 MG TAB PO (10:23)
[2020-11-16] MEDS: Atorvastatin 40 MG TAB PO (10:23)
[2020-11-16] MEDS: Lisinopril 20 MG TAB PO (10:23)
[2020-11-16] MEDS: Prochlorperazine 10 MG/2 ML VIAL IVP (10:41)
[2020-11-16] MEDS: diphenhydrAMINE 50 MG/ML VIAL 25 MG IVP (10:41)
[2020-11-16] MEDS: ACETAMINOPHEN 1,000 MG/100 ML BTL 400 MG IVPB ×2 (11:07→15:26)
[2020-11-16] MEDS: Normal Saline 50 ML 200 ML (11:15)
[2020-11-16 11:30] LABS: Bilirubin Negative (Negative); Blood Trace-intact (Negative); Clarity Clear (Clear); Glucose Negative (Negative); Ketones 15 mg/dL (Negative); Leukocyte Esterase Negative (Negative); Nitrite Negative (Negative); Urobilinogen 0.2 EU/dL (Up TO 0.2)
[2020-11-16 11:35] LABS: Epithelial Cells Rare HPF (Negative); WBC 0-2 HPF (0-5)
[2020-11-16 11:36] LABS: Bacteria Rare HPF (Negative); C & S Indicated? No; Casts Negative LPF (Negative); Crystals Negative HPF (Negative); Mucus Negative (Negative)
--- NOTE | 2020-11-16 12:00 | RT.EKG_ITS ---
APPROVED REPORT Exam: Resting ECG Reason for Exam: bradycardia Patient Location: E HR:48 bpm ECG Measurements Heart Rate 48 AXIS WA 184 P 11 QRSd 95 QRS 37 QT 452 T 37 QTc 403 Conclusion Bradycardia with irregular rate...V-rate 40- 65, mean < 60. Bradycardia with rate variation. No STEMI. I have reviewed and interpreted ECG and agree with software generated interpretation.
[2020-11-16 12:24] LABS: Troponin I < 0.05 ng/mL (<0.06)
--- NOTE | 2020-11-16 12:51 | HPE_ITS ---
Date of service: 11/16/20 Time of Service: 12:51 Assessment and Plan Assessment and plan (1) Cholelithiasis and acute cholecystitis without obstruction: Status: Acute Assessment and plan: Patient needs to be admitted for hydration and antibiotic. There should be some type of evaluation for the bradycardia. He is not on beta-blockers. He does receive all his care at the [facility] and would prefer to be transferred. I did discuss this with the ED staff. (2) Elevated cholesterol: Status: Chronic (3) Umbilical hernia: Status: Acute (4) HTN (hypertension): Status: Chronic (5) Depression: Status: Chronic (6) Anxiety: Status: Chronic (7) Dehydration: Status: Acute History of Present Illness Consults Consult date: 11/16/20 Requesting physician: Barbi Rider Narrative: Patient was in his normal state of good health until yesterday. He had a sudden onset of right upper quadrant pain with associated nausea, vomiting, and diarrhea. He has never had anything like this before. He did not eat anything unusual. Did not take in any unusual activities. He denies any travel. He not normally had problems with his digestive system. He did not know he had gallstones. It lasted about 4 hours. Then he was able to tolerate some broth and some yogurt. It woke him up at 3 AM today with continued pain. His whole abdomen hurts but the majority of pain is concentrated in his right quadrant. He has localized tenderness and guarding. He also has a large umbilical hernia. He was supposed to have this repaired but has not done so yet. He gets the majority of care at the [facility] and would prefer to go to the [facility]. He suffers from depression and is 100% disabled from this. He does get all his cares down at the [facility]. Incidentally he has been noted to be very bradycardic while he was in our ER. He has a history of hypertension and elevated cholesterol. He still appears to be in a lot of pain and clinically is dehydrated. I did personally review his CT scans. His gallbladder is distended, he has multiple large stones, and he has a thickened gallbladder wall. He has a mildly elevated white count at 12. He does have a significant left shift. His LFTs, T. Link, lipase are normal. He does carry a diagnosis of cirrhosis as well. His liver is enlarged on CT. There is no ascites. He has fluids and antiemetics in the ER. He is still in a lot of pain is still very nauseated. He needs to be admitted for hydration, pain management, antibiotics, and eventual surgery. Again [facility]. Review of Systems All systems reviewed & are unremarkable except as noted in HPI and below PFSH Medical History (Updated 11/16/20 @ 13:09 by Maggie Lang DO) Anxiety Depression HTN (hypertension) Surgical History H/O shoulder surgery History of hernia repair History of hip surgery History of knee surgery History of sinus surgery Social History Smoking/Tobacco Use Status: Never Smoking risk assessment performed?: Yes Alcohol Intake: current Alcohol Intake frequency: 0-2 drinks per day Alcohol type: beer and wine Substance use type: does not use Do you feel safe at home: Yes Do you feel safe in your relationship?: Yes Meds Allergies and Home Medications Allergies Allergy/AdvReac Type Severity Reaction Status Date / Time No Known Allergies Allergy Unverified 11/16/20 08:47 Home Medications Medication Instructions Recorded Confirmed Type atorvastatin 40 mg PO DAILY 09/12/18 11/16/20 History hydrochlorothiazide 25 mg PO DAILY 09/12/18 11/16/20 History lisinopril 20 mg PO DAILY 09/12/18 11/16/20 History nortriptyline 150 mg PO HS 09/12/18 11/16/20 History trazodone 300 mg PO DAILY 09/12/18 11/16/20 History Exam Const General: cooperative, in distress and ill appearing Orientation: alert, awake and oriented x3 HENMT Ears: hearing grossly normal bilaterally Teeth and gingiva: edentulous Other: Mucous membranes appear dry. Eyes Sclera: sclerae normal Other: No jaundice Resp Effort & Inspection: normal respiratory effort and able to speak in complete sentences Auscultation: clear to auscultation bilaterally Cardio Rate: regular rate Rhythm: regular rhythm Other: Currently BP and heart rate are normal. There is a documented bradycardic episode into the 30s. GI Inspection: normal to inspection Palpation: soft, guarding in the RUQ, hernia umbilical, tender in the RUQ and Jackson's sign positive and No ascites Auscultation: hypoactive bowel sounds Results Labs Result diagrams: 11/16/20 08:55 11/16/20 08:55 Labs: Laboratory Results - last 24 hr 11/16/20 11/16/20 11/16/20 08:55 08:55 11:20 WBC 12.17 H RBC 4.97 Hgb 15.7 Hct 44.6 MCV 89.7 MCH 31.6 MCHC 35.2 RDW 11.7 L Plt Count 356 MPV 9.2 Immature Gran % 0.2 Neutrophils % 84.5 Lymphocytes % 11.8 Monocytes % 3.0 Eosinophils % 0.1 Basophils % 0.4 Nucleated RBC % 0 Absolute Neutrophils 10.28 H Absolute Lymphocytes 1.44 Absolute Monocytes 0.37 Absolute Eosinophils 0.01 Absolute Basophils 0.05 Sodium 139 Potassium 3.6 Chloride 100 Carbon Dioxide 28.7 Anion Gap 10.3 BUN 20 H Creatinine 1.1 Estimated GFR/1.73 m2 >= 60.00 Glucose 180 H Calcium 9.6 Magnesium 1.9 Total Bilirubin 0.9 AST 24 ALT 40 Alkaline Phosphatase 83 Troponin I < 0.05 Total Protein 8.1 Albumin 4.1 Lipase 65 Urine Color Yellow Urine Clarity Clear Urine pH 7.0 Ur Specific [place] 1.010 Urine Protein Trace H Urine Ketones 15 H Urine Blood Trace-intact H Urine Nitrite Negative Urine Bilirubin Negative Urine Urobilinogen 0.2 Ur Leukocyte Esterase Negative Urine RBC 3-5 H Urine WBC 0-2 Ur Epithelial Cells Rare Urine Crystals Negative Urine Bacteria Rare Urine Casts Negative Urine Mucus Negative Ur Culture Indicated? No Urine Glucose Negative 11/16/20 11:55 WBC RBC Hgb Hct MCV MCH MCHC RDW Plt Count MPV Immature Gran % Neutrophils % Lymphocytes % Monocytes % Eosinophils % Basophils % Nucleated RBC % Absolute Neutrophils Absolute Lymphocytes Absolute Monocytes Absolute Eosinophils Absolute Basophils Sodium Potassium Chloride Carbon Dioxide Anion Gap BUN Creatinine Estimated GFR/1.73 m2 Glucose Calcium Magnesium Total Bilirubin AST ALT Alkaline Phosphatase Troponin I < 0.05 Total Protein Albumin Lipase Urine Color Urine Clarity Urine pH Ur Specific [place] Urine Protein Urine Ketones Urine Blood Urine Nitrite Urine Bilirubin Urine Urobilinogen Ur Leukocyte Esterase Urine RBC Urine WBC Ur Epithelial Cells Urine Crystals Urine Bacteria Urine Casts Urine Mucus Ur Culture Indicated? Urine Glucose Last Vital Signs Temp 36.5 C 11/16/20 09:37 Pulse 54 L 11/16/20 11:46 Resp 26 H 06/05/21 12:20 BP 168/93 H 11/16/20 11:46 Pulse Ox 95 11/16/20 12:20 COVID-19 Screening Have you, or household traveled for leisure in last 14 days?: No Had IN PERSON contact w/suspected or confirmed C-19 person: No
[2020-11-16] MEDS: Ondansetron 4 MG/2 ML VIAL IVP (13:14)
[2020-11-16] MEDS: Lactated Ringers 1,000 ML 150 ML IV (13:14)
[2020-11-16 15:00] LABS: Source Nasal/Nares
[2020-11-16] MEDS: HYDROmorphone 2 MG/ML VIAL 1 MG IVP (15:29)
[2020-11-16 15:52] LABS: COVID-19 PCR Negative (Negative)
== END 2020-11-16 16:45 | disposition short-term general hospital (02) ==
LOC: ER 08:48
PROVIDERS: Emergency Provider Physician Assistant
DX: K80.00 Calculus of gallbladder with acute cholecystitis without obstruction (principal); R00.1 Bradycardia, unspecified; Z03.818 Encounter for observation for suspected exposure to other biological agents ruled out
CPT/HCPCS: 36415; 80053; 83690; 87635; 93005; 96361; 96365; 96367; 96375; 96376; 99285; 74177; 81003; 81015; 83735; 84484; 85025; 93010; J0131; J0780; J1200; J2405; J3490

== ENCOUNTER 2021-07-24 13:48 | Emergency (ER) | payer OTHER, SELFPAY ==
[2021-07-24] VITALS (31 sets, daily range): BP systolic 107–168; BP diastolic 55–83; PULSE 44–83; RESP 11–23; TEMP 36.6; O2SAT 90–100
--- NOTE | 2021-07-24 14:00 | RT.EKG_ITS ---
APPROVED REPORT Exam: Resting ECG Reason for Exam: chest pain Patient Location: E HR:56 bpm ECG Measurements Heart Rate 56 AXIS RI 185 P 35 QRSd 90 QRS 35 QT 417 T 57 QTc 403 Conclusion Slow sinus arrhythmia...V-rate 44- 69, mean< 60 Low voltage, extremity leads...all extremity leads <0.5mV Physician: no stemi, stable, unchanged from prior on 11/16/20
--- NOTE | 2021-07-24 14:00 | DI.CT_ITS ---
Exam(s) CT ABDOMEN PELVIS W EXAM: CT ABDOMEN PELVIS W CLINICAL HISTORY: vomiting x20, eval for obstruction. TECHNIQUE: Imaging Protocol: Axial computed tomography images with coronal and sagittal reformatted images were created and reviewed CONTRAST MATERIAL: Intravenous: Omnipaque 100cc Oral: None COMPARISON: CT CT ABDOMEN PELVIS W from 11/16/2020 FINDINGS: VISUALIZED LUNG BASES: No nodules nor pleural effusions evident. ABDOMEN: There is no ascites. LIVER: There are no focal hepatic lesions evident. Mild dilatation of intrahepatic ducts. GALLBLADDER/BILIARY: Gallbladder surgically absent. CBD is mildly dilated. No calculi seen within t he CBD. No mass in the pancreatic head. PANCREAS: No evidence of pancreatic mass nor dilatation of the pancreatic duct. SPLEEN: Spleen is not enlarged. No obvious intrasplenic lesions. Splenic and portal veins are paten t. ADRENALS: There are no significant adrenal masses. KIDNEYS:There are few tiny cysts in the kidneys noted. All measure less than 1 cm. No solid renal m asses. No calculi nor hydronephrosis. Ureters are not dilated.. ABDOMINAL AORTA: Abdominal aorta is not enlarged. LYMPH NODES:There is no retroperitoneal nor paraaortic adenopathy. ABDOMINAL WALL: No evidence of significant anterior abdominal wall nor inguinal hernia. GI: Extensive sigmoid diverticulosis. Also diverticuli in the descending left large bowel. PELVIS: GI: No evidence of appendicitis.Extensive sigmoid diverticulosis. Also extensive diverticulosis of t he descending-left colon. LYMPH NODES: There is no intrapelvic nor inguinal adenopathy. REPRODUCTIVE: Prostate size upper normal. URINARY BLADDER: There is a small right-sided Hutch diverticulum OSSEOUS: No significant osseous lesions. No fractures. IMPRESSION: 1. Gallbladder surgically absent. There is mild dilatation of the biliary tree which is probably rel ated post cholecystectomy status. 2. Extensive diverticulosis of the sigmoid and descending-left side of the colon. No obvious acute d iverticulitis although please note that a subtle case of diverticulitis can be missed given the exten sive involvement of the sigmoid. 3. Small right-sided Hutch diverticulum evident in the urinary bladder. No calculi. No hydronephros is. 4. RADIATION DOSE DELIVERED: 836.93mGy.cm Total DLP DATA REPOSITORY: All CT scans at this facility are submitted to the National Radiology Data Registry (NRDR) Dose Index Registry (DIR) with the [employer] (ACR). RADIATION OPTIMIZATION: All CT scans at this facility use at least one of these dose optimization te chniques: automated exposure control; mA and/or kV adjustment per patient size (includes targeted exa ms where dose is matched to clinical indication); or iterative reconstruction.
--- NOTE | 2021-07-24 14:15 | ED.GENADUL_ITS ---
Discharge Plan Disposition Patient Disposition: HOME Condition: Good Discharge Details Clinical Impression: Vomiting, Abdominal pain Primary Care Provider: Unknown,Unknown ED Provider: Omkar Rousseau Home Meds and New Rx's Prescriptions: New ondansetron 4 mg tablet,disintegrating 4 mg PO Q8H Qty: 14 0RF Continued nortriptyline 50 mg Capsule 150 mg PO HS 0RF atorvastatin 40 mg Tablet 40 mg PO DAILY 0RF trazodone 100 mg Tablet 300 mg PO DAILY 0RF hydrochlorothiazide 25 mg Tablet 25 mg PO DAILY 0RF lisinopril 20 mg Tablet 20 mg PO DAILY 0RF cholestyramine-aspartame [Prevalite] 4 gram Powder In Packet 4 g PO DAILY 0RF Rx Instructions: administer w/meal; avoid other meds within 1hr before or 4-6hr after dose Discharge Instructions Instructions: Acute Nausea and Vomiting (ED), Abdominal Pain (ED) Additional Instructions: At this time. CAT scan is reassuring, and shows no signs of obstruction, or other significant abnormality. Your laboratory work-up and electrolytes are also normal and reassuring at this stage. You require further evaluation to help diagnose the cause of this recurring vomiting. Please follow-up closely with your primary care provider to discuss endoscopy. Please stick with bland foods for the next week, focusing on applesauce, bananas, oat and toast. We have given you a small bottle of Zofran to help with nausea, as well as a prescription for Zofran that has been sent to your pharmacy. Please take this as needed for nausea. If you notice any worsening of your symptoms, or any new symptoms such as vomiting, diarrhea, fever, chills, shortness of breath, chest pain, numbness, weakness, or fainting , please return immediately to the emergency department for reevaluation. Please follow up with your primary care provider as soon as possible for reassessment and reevaluation. As always, it was a pleasure participating in your medical care today. Discharge Data Discharge Date/Time-TO BE ENTERED AT DEPARTURE: 07/24/21 17:23 Medical Decision Making This is a 66-year-old male with past medical history of recent cholecystectomy, anxiety, depression, hypertension, who presents today for evaluation of vomiting. Patient had cholecystectomy last year, since then he admits to chronic abdominal pain. Over the last few weeks he has had intermittent episodes of vomiting which usually resolve on their own. However last night he had no showed started at 3 AM, and has had continued vomiting ever since. He has had 20 episodes of vomiting so far. He denies any hematemesis. He denies any diarrhea. He admits to mild generalized abdominal achiness. He denies any chest pain or shortness of breath. He denies any other aggravating or relieving symptoms. He has been trying to keep fluids down but has been unable to. No other complaints at this time. No fever or chills. No other modifying factors. Physical exam demonstrates some mild abdominal tenderness, bowel sounds are present. No chest wall tenderness or subcutaneous crepitus. Differential incised for obstruction, however other acute intra-abdominal process is possible. We will get a CT scan, give antiemetics, pain medications as needed, rehydrate, monitor closely and reassess. [address] scan results have returned, no evidence of acute process. No evidence of ileus or evidence of obstruction. Laboratory work-up is unremarkable. Electrolytes stable, renal function good. Troponin and EKG unremarkable. Lipase normal. On reassessment patient feeling much better. He is able to tolerate p.o. He feels much better. Recommend outpatient EGD for further assessment and evaluation. I discussed this with both the patient's and the patient. At this time would be notable clinical improvement and a stable work-up I do feel that the patient is safe for discharge at this time. I have extensively reviewed the treatment plan and discharge instructions with the patient and their family. I have addressed all patient concerns at this time. The patient and family was made aware of what symptoms to monitor for that would warrant a return to the emergency department. Discussed the plan with the patient and family, they demonstrate verbal understanding and agreement with our assessment and plan at this time. The documentation in this chart was dictated using [employer] dictation software. Please excuse any dictation errors. FINDINGS: VISUALIZED LUNG BASES: No nodules nor pleural effusions evident. ABDOMEN: There is no ascites. LIVER: There are no focal hepatic lesions evident. Mild dilatation of intrahepatic ducts. GALLBLADDER/BILIARY: Gallbladder surgically absent. CBD is mildly dilated. No calculi seen within the CBD. No mass in the pancreatic head. PANCREAS: No evidence of pancreatic mass nor dilatation of the pancreatic duct. SPLEEN: Spleen is not enlarged. No obvious intrasplenic lesions. Splenic and portal veins are patent. ADRENALS: There are no significant adrenal masses. KIDNEYS:There are few tiny cysts in the kidneys noted. All measure less than 1 cm. No solid renal masses. No calculi nor hydronephrosis. Ureters are not dilated.. ABDOMINAL AORTA: Abdominal aorta is not enlarged. LYMPH NODES:There is no retroperitoneal nor paraaortic adenopathy. ABDOMINAL WALL: No evidence of significant anterior abdominal wall nor inguinal hernia. GI: Extensive sigmoid diverticulosis. Also diverticuli in the descending left large bowel. PELVIS: GI: No evidence of appendicitis.Extensive sigmoid diverticulosis. Also extensive diverticulosis of the descending-left colon. LYMPH NODES: There is no intrapelvic nor inguinal adenopathy. REPRODUCTIVE: Prostate size upper normal. URINARY BLADDER: There is a small right-sided Hutch diverticulum OSSEOUS: No significant osseous lesions. No fractures. IMPRESSION: 1. Gallbladder surgically absent. There is mild dilatation of the biliary tree which is probably related post cholecystectomy status. 2. Extensive diverticulosis of the sigmoid and descending-left side of the colon. No obvious acute diverticulitis although please note that a subtle case of diverticulitis can be missed given the extensive involvement of the sigmoid. 3. Small right-sided Hutch diverticulum evident in the urinary bladder. No calculi. No hydronephrosis. 4. HPI General Date/Time Provider Initiated Documentation: 07/24/21 14:02 . HPI Narrative: This is a 66-year-old male with past medical history of recent cholecystectomy, anxiety, depression, hypertension, who presents today for evaluation of vomiting. Patient had cholecystectomy last year, since then he admits to chronic abdominal pain. Over the last few weeks he has had intermitt ent episodes of vomiting which usually resolve on their own. However last night he had no showed started at 3 AM, and has had continued vomiting ever since. He has had 20 episodes of vomiting so far. He denies any hematemesis. He denies any diarrhea. He admits to mild generalized abdominal achiness. He denies any chest pain or shortness of breath. He denies any other aggravating or relieving symptoms. He has been trying to keep fluids down but has been unable to. No other complaints at this time. No fever or chills. No other modifying factors. Related Data Home Medications Medication Instructions Recorded Confirmed atorvastatin 40 mg tablet 40 mg PO DAILY 09/12/18 07/24/21 hydrochlorothiazide 25 mg tablet 25 mg PO DAILY 09/12/18 07/24/21 lisinopril 20 mg tablet 20 mg PO DAILY 09/12/18 07/24/21 nortriptyline 50 mg capsule 150 mg PO HS 09/12/18 07/24/21 trazodone 100 mg tablet 300 mg PO DAILY 09/12/18 07/24/21 cholestyramine-aspartame 4 gram 4 g PO DAILY 07/24/21 07/24/21 oral powder for susp in a packet (Prevalite) ondansetron 4 mg disintegrating 4 mg PO Q8H #14 tab 07/24/21 tablet Previous Rx's Medication Instructions Recorded ondansetron 4 mg disintegrating 4 mg PO Q8H #14 tab 07/24/21 tablet Allergies Allergy/AdvReac Type Severity Reaction Status Date / Time No Known Allergies Allergy Verified 07/24/21 14:48 General Stated Complaint: Chest Pain MANINDER: 2 Review of Systems Narrative: 10 point review of systems was performed, pertinent positives and negatives are noted in the history of present illness. All others were otherwise negative. PFSH All Active Problems (Updated 07/24/21 @ 16:44 by Omkar Rousseau DO) Acute cholecystitis (Acute) Vomiting (Acute) Abdominal pain (Acute) Dehydration (Acute) Umbilical hernia (Acute) Elevated cholesterol (Chronic) HTN (hypertension) (Chronic) Depression (Chronic) Anxiety (Chronic) Cholelithiasis and acute cholecystitis without obstruction (Acute) Surgical History H/O shoulder surgery History of hernia repair History of hip surgery History of knee surgery History of sinus surgery Social History Smoking/Tobacco Use Status: Never Smoking risk assessment performed?: Yes Alcohol Intake: never Substance use type: does not use Do you feel safe at home: Yes Do you feel safe in your relationship?: Yes Exam Narrative Exam Narrative: 1.Const: Well-nourished, Well-developed, appearing stated age 2.Eyes: PERRL, no conjunctival injection, and symmetrical lids. 3.ENT: Atraumatic external nose and ears. Moist MM. Neck: Symmetric, trachea midline, No thyromegaly. 4.CVS: +S1/S2, No murmurs or gallops. Peripheral pulses 2+ and equal in all extremities. Brisk capillary refill in all extremities. 5.RESP: Unlabored respiratory effort. Clear to auscultation bilaterally. No wheezes rales or rhonchi 6.GI: Soft, nondistended, no guarding or rebound. Mild achiness in the epigastric region. 7.MSK: Normocephalic/Atraumatic, Extremities w/o deformity or ttp No cyanosis or clubbing, Normal movement of all extremities 8.Skin: Warm, Dry. No rashes or lesions. 9.Neuro: sql application developer II-XII grossly intact. Sensation grossly intact, no focal neurologic deficits. 10.Psych: (AAO) x3. Appropriate mood and affect Course Vital Signs Vital signs: Vital Signs Temperature 36.6 C 07/24/21 14:01 Pulse 58 L 07/24/21 14:01 Respiratory Rate 18 07/24/21 14:01 Blood Pressure 168/74 H 07/24/21 14:01 Pulse Oximetry 98 07/24/21 14:01 Temperature 36.6 C 07/24/21 14:01 Temperature Source Skin 07/24/21 14:01 Pulse 58 L 07/24/21 14:01 Respiratory Rate 18 07/24/21 14:01 Respiratory Effort 07/24/21 14:01 Blood Pressure 168/74 H 07/24/21 14:01 Blood Pressure Position Supine 07/24/21 14:01 Pulse Oximetry 98 07/24/21 14:01 Oxygen Delivery Method Room Air 07/24/21 14:01 Oxygen Flow Rate 0 07/24/21 14:01 Pain Level 7 07/24/21 14:01
[2021-07-24] MEDS: Ondansetron 4 MG/2 ML VIAL IVP (14:18)
[2021-07-24] MEDS: Normal Saline 1,000 ML 1000 ML IV (14:18)
[2021-07-24 14:19] LABS: Abs Immature Grans 0.02 10^3/uL (0.0-0.06); Absolute Basophil Count 0.03 10^3/uL (0.0-0.2); Absolute Eosinophil Count 0.01 10^3/uL (0.0-0.7); Absolute Lymphocyte Count 0.88 10^3/uL (1.2-3.4); Absolute Monocyte Count 0.21 10^3/uL (0.1-0.8); Absolute Neutrophil Count 7.66 10^3/uL (1.2-6.7); Basophils % 0.3; Eosinophils % 0.1; HCT 46.5 % (40.0-50.0); HGB 15.9 g/dL (13.5-17.5); Immature Grans % 0.2; MCH 30.2 pg (27.0-33.0); MCHC 34.2 % (32.0-36.0); MCV 88.4 fL (80-95); MPV 9.1 fL (8.0-11.0); Monocytes % 2.4; Nucleated RBC 0 %; Platelet Count 392 10^3/uL (130-400); RBC 5.26 10^6/uL (4.36-5.78); RDW 11.6 % (11.8-14.1); WBC 8.81 10^3/uL (4.4-10.8)
[2021-07-24 14:40] LABS: ALT 52 U/L (16-63); AST 32 U/L (15-37); Albumin 4.5 g/dL (3.4-5.0); Alkaline Phosphatase 83 U/L (46-116); Anion Gap 10.7 mmol/L (3-11); BUN 13 mg/dL (7-18); Bilirubin, Total 0.7 mg/dL (0.2-1.0); CO2 29.3 mmol/L (21.0-32.0); CREATININE 0.9 mg/dL (0.70-1.30); Chloride 95 mmol/L (98-107); Glucose 137 mg/dL (74-106); Lipase 97 U/L (73-393); Potassium 3.6 mmol/L (3.5-5.1); Sodium 135 mmol/L (136-145); Total Protein 8.9 g/dL (6.4-8.2); Troponin I < 50 ng/L (<or=60)
[2021-07-24] MEDS: MORPHine 4 MG/ML SYR IVP (15:10)
[2021-07-24] MEDS: Metoclopramide 10 MG/2 ML VIAL IVP (15:11)
--- NOTE | 2021-07-24 15:13 | NUR.NOTE ---
Nursing Note:Pt reports zofran ineffective, cont. to dry heave also c/o 01/21 right sided abd pain continues. Provider notified, orders recieved for meds, see EMAR, cont. to monitor.
[2021-07-24] MEDS: Omnipaque 350 MG/ML 100 ML BTL IJ (16:01)
--- NOTE | 2021-07-24 16:16 | NUR.NOTE ---
Nursing Note: Pt return from radiology, reports pain & nausea tolerable at this time, monitors continued, pt resting w/eyes closed at this time, cont. to monitor.
[2021-07-24] MEDS: Ondansetron O.D.T. 4 MG TABEF, 3 TABS/BTL PO (17:21)
== END 2021-07-24 17:23 | disposition home or self-care (01) ==
PROVIDERS: Emergency Provider Student in an Organized Health Care Education/Training Program
DX: R11.10 Vomiting, unspecified (principal); R10.9 Unspecified abdominal pain; R07.9 Chest pain, unspecified; Z90.49 Acquired absence of other specified parts of digestive tract
CPT/HCPCS: 36415; 80053; 83690; 93005; 96361; 96374; 96375; 99285; 74177; 84484; 85025; 93010; 99284; J2270; J2405; J2765; J3490

== ENCOUNTER 2024-01-09 10:26 | Emergency (ER) | payer OTHER, SELFPAY ==
[2024-01-09 10:37] VITALS: BP 160/90; PULSE 112; RESP 16; TEMP 37.1; O2SAT 100
--- NOTE | 2024-01-09 10:59 | ED.GENADUL_ITS ---
Discharge Plan Disposition Patient Disposition: Home Discharge Details Clinical Impression: Cellulitis, Erythema migrans (Lyme disease) Primary Care Provider: Unknown,Unknown ED Provider: Osmar Latham Home Meds and New Rx's Prescriptions: New doxycycline hyclate 100 mg capsule 100 mg PO BID 21 Days Qty: 42 0RF Continued nortriptyline 50 mg Capsule 150 mg PO HS atorvastatin 40 mg Tablet 40 mg PO DAILY trazodone 100 mg Tablet 300 mg PO DAILY hydrochlorothiazide 25 mg Tablet 25 mg PO DAILY lisinopril 20 mg Tablet 20 mg PO DAILY ondansetron 4 mg tablet,disintegrating 4 mg PO Q8H Qty: 14 0RF tamsulosin [Flomax] 0.4 mg capsule 0.4 mg PO DAILY Entyvio Pen 108 mg/0.68 mL pen injector 108 mg subcut Q2W Discharge Instructions Instructions: Lyme disease, Cellulitis (Skin Infection), Adult ED Additional Instructions: Please monitor symptoms closely and return to the emergency department immediately for any new or significant worsening of symptoms Please take antibiotic for the full 21-day course of medication. As discussed please be mindful of sun exposure as the antibiotic may cause increased sun sensitivity and sunburns If not improving please follow-up with your primary care provider for reassessment Referrals: Primary Care Provider [Outside] (If not improving) Discharge Data Discharge Date/Time-TO BE ENTERED AT DEPARTURE: 01/09/24 11:24 HPI General Mode of arrival: ambulatory . Date/Time Provider Initiated Documentation: 01/09/24 10:38 . Limitations to Documentation: no limitations . Information obtained by: patient and RN notes reviewed . History of Present Illness 69 year old M presents to the emergency department with the chief complaint of Insect bite, Patient started experiencing this day(s) (5) and it has been constant. No relieving factors improve symptom(s), No exacerbating factors reported . Patient notes denies diaphoresis and headaches. Patient did receive the following treatments prior to arrival, other (Benadryl) Related Data Home Medications ?Medication ?Instructions ?Recorded ?Confirmed atorvastatin 40 mg tablet 40 mg PO DAILY 09/12/18 01/09/24 hydrochlorothiazide 25 mg tablet 25 mg PO DAILY 09/12/18 01/09/24 lisinopril 20 mg tablet 20 mg PO DAILY 09/12/18 01/09/24 nortriptyline 50 mg capsule 150 mg PO HS 09/12/18 01/09/24 trazodone 100 mg tablet 300 mg PO DAILY 09/12/18 01/09/24 ondansetron 4 mg disintegrating 4 mg PO Q8H #14 tabs 07/24/21 01/09/24 tablet doxycycline hyclate 100 mg capsule 100 mg PO BID 21 days #42 caps 01/09/24 tamsulosin 0.4 mg capsule (Flomax) 0.4 mg PO DAILY 01/09/24 01/09/24 vedolizumab 108 mg/0.68 mL 108 mg subcut Q2W 01/09/24 01/09/24 subcutaneous pen injector (Entyvio Pen) Previous Rx's ?Medication ?Instructions ?Recorded ondansetron 4 mg disintegrating 4 mg PO Q8H #14 tabs 07/24/21 tablet doxycycline hyclate 100 mg capsule 100 mg PO BID 21 days #42 caps 01/09/24 Allergies Allergy/AdvReac Type Severity Reaction Status Date / Time No Known Allergies Allergy Verified 01/09/24 10:31 General Stated Complaint: InsectBite AMNINDER: 3 Review of Systems Constitutional Constitutional: Reports chills, Denies fever(s) and Denies headache(s) ENT Ears, Nose, Mouth, and Throat: Denies headache(s) Musculoskeletal Musculoskeletal: Reports myalgias, Denies arthralgias and Denies numbness Integumentary/Breasts Skin/Breast: Reports as per HPI, Reports pruritus, Reports rash and Reports skin pain Neurologic Neurologic: Denies headache(s), Denies numbness and Denies paresthesias Exam Const General: cooperative, comfortable and no acute distress Orientation: alert, awake and oriented x3 HENIL Mouth: moist mucous membranes Resp Effort & Inspection: normal respiratory effort and able to speak in complete sentences Auscultation: clear to auscultation bilaterally Cardio Rate: regular rate Rhythm: regular rhythm Heart Sounds: S1 normal and S2 normal Skin General skin exam: erythema (Circular area with central bite james consistent with insect/tick bite), no fluctuance and no induration Rashes: rashes noted back arrangement bulls-eye, color red, distribution ( single circular), surface blanching and erythematous and tender Neuro General: patient alert, patient awake and patient oriented x3 Sensory Exam: no sensory deficits noted Course Vital Signs Vital signs: Vital Signs Temperature 37.1 C 01/09/24 10:37 Pulse 112 H 01/09/24 10:37 Respiratory Rate 16 01/09/24 10:37 Blood Pressure 160/90 H 01/09/24 10:37 Pulse Oximetry 100 01/09/24 10:37 Temperature 37.1 C 01/09/24 10:37 Temperature Source Temporal Artery Scan 01/09/24 10:37 Pulse 112 H 01/09/24 10:37 Respiratory Rate 16 01/09/24 10:37 Respiratory Effort Normal, Non-Labored 01/09/24 10:39 Blood Pressure 160/90 H 01/09/24 10:37 Blood Pressure Position Sitting 01/09/24 10:37 Pulse Oximetry 100 01/09/24 10:37 Oxygen Delivery Method Room Air 01/09/24 10:37 Oxygen Flow Rate 0 01/09/24 10:37 Pain Level 8 01/09/24 10:37 Medical Decision Making Patient presenting to the emergency department for chief complaint of insect bite. 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 Patient states over the next couple days he noted increasing erythema redness and itching along with discomfort to that area. Patient also having some chills and myalgias. Patient denies all other symptoms. Physical exam shows large erythematous rash to the back. Patient in posterior left shoulder. Patient did show me pictures from yesterday that shows a clear demarcation of a bull's-eye type feature of the sondra h. Patient does state that he is outside often. Differential diagnosis to include cellulitis and erythema migrans. Will cover patient with 21 days of doxycycline. Patient was offered tickborne panel but still informed that he would need to take all 21 days of antibiotics even if panel is negative. After this discussion patient declined further testing and stated that he would take medication and follow-up with primary care provider if not improving which I feel is reasonable to defer testing at this time. After discussion of diagnosis and plan of care patient has no further needs, questions, or concerns and states clear understanding to return to the emergency department for any worsening symptoms. This documentation was generated using [employer] system, please disregard any oddities of phrase or misspellings. Quality:SDOH Health Related Social Needs: No Data to Display PFSH All Active Problems (Updated 01/09/24 @ 11:08 by Osmar Latham NP) Erythema migrans (Lyme disease) (Acute) Cellulitis (Acute) Acute cholecystitis (Acute) Dehydration (Acute) Umbilical hernia (Acute) Elevated cholesterol (Chronic) HTN (hypertension) (Chronic) Depression (Chronic) Anxiety (Chronic) Cholelithiasis and acute cholecystitis without obstruction (Acute) Surgical History History of hernia repair History of sinus surgery History of hip surgery H/O shoulder surgery History of knee surgery Social History Smoking/Tobacco Use Status: Never Smoking risk assessment performed?: Yes Alcohol Intake: never Substance use type: does not use Housing: house Do you feel safe at home: Yes Do you feel safe in your relationship?: Yes
[2024-01-09 11:20] VITALS: BP 143/101; PULSE 100; RESP 18; O2SAT 97
[2024-01-09] MEDS: Doxycycline Hyclate 100 MG CAP PO (11:20)
== END 2024-01-09 11:24 | disposition home or self-care (01) ==
PROVIDERS: Emergency Provider Nurse Practitioner Family
DX: S20.461A Insect bite (nonvenomous) of right back wall of thorax, initial encounter (principal); L03.312 Cellulitis of back [any part except buttock and flank]; A69.20 Lyme disease, unspecified; W57.XXXA Bitten or stung by nonvenomous insect and other nonvenomous arthropods, initial encounter
CPT/HCPCS: 99283

== ENCOUNTER 2024-06-28 13:22 | Emergency (ER) | payer OTHER, SELFPAY ==
[2024-06-28] VITALS (14 sets, daily range): BP systolic 139–166; BP diastolic 70–97; PULSE 79–94; RESP 13–27; TEMP 36.6; O2SAT 92–98
--- NOTE | 2024-06-28 13:15 | RT.EKG_ITS ---
APPROVED REPORT Exam: Resting ECG Reason for Exam: Chest Pain Patient Location: E HR:92 bpm ECG Measurements Heart Rate 92 AXIS VA 212 P 30 QRSd 94 QRS -63 QT 351 T 39 QTc 435 Conclusion Sinus rhythm, rate 92 1st degree HB, VA interval 212ms Q wave lead III No STEMI Compared to priors, rate has increased
--- NOTE | 2024-06-28 14:00 | DI.RAD_ITS ---
Exam(s) XR CHEST 2V PA LATERAL EXAM: XR CHEST 2V PA LATERAL CLINICAL HISTORY: Chest pain TECHNIQUE: 2D digital imaging was performed. Two views. COMPARISON: CR XR CHEST 2V PA LATERAL from 09/12/2018 FINDINGS: HEART: Normal size. Aorta: Not dilated. PULMONARY VASCULATURE: Normal. MEDIASTINUM: Unremarkable. LUNGS: Clear. PLEURAL SPACE: No pleural effusion or pneumothorax. BONE:Unremarkable for age. SOFT TISSUES: Unremarkable. IMPRESSION: No acute abnormality. DATA REPOSITORY: RADIATION DOSE DELIVERED:
--- NOTE | 2024-06-28 14:03 | ED.GENADUL_ITS ---
Discharge Plan Disposition Patient Disposition: Home Condition: Stable Discharge Details Clinical Impression: Chest pain of uncertain etiology, HTN (hypertension), Elevated cholesterol Primary Care Provider: Unknown,Unknown ED Provider: Sridevi Chavez Home Meds and New Rx's Prescriptions: No Action nortriptyline 50 mg Capsule 150 mg PO HS atorvastatin 40 mg Tablet 40 mg PO DAILY trazodone 100 mg Tablet 300 mg PO DAILY hydrochlorothiazide 25 mg Tablet 25 mg PO DAILY lisinopril 20 mg Tablet 20 mg PO DAILY ondansetron 4 mg tablet,disintegrating 4 mg PO Q8H Qty: 14 0RF tamsulosin [Flomax] 0.4 mg capsule 0.4 mg PO DAILY Entyvio Pen 108 mg/0.68 mL pen injector 108 mg subcut Q2W risperidone [Risperdal] 0.5 mg tablet 0.5 mg PO HS Discharge Instructions Instructions: Chest Pain (DC) Additional Instructions: You were seen in the emergency department today for evaluation of chest pain. In our department a full physical examination performed, had laboratory studies that were reassuring and had an EKG and a chest x-ray that did not show any abnormalities that could explain her symptoms. At this time, we have discussed the importance of following up for stress testing and cardiac echo, as you have some risk factors in your history that do put you at higher risk for a cardiac event. If you do experience a recurrence, worsen, or change in your chest pain you should take 324 mg of aspirin and return to the nearest emergency department for reevaluation. Please follow-up with your primary care provider in the next few days to discuss this visit and any symptoms that change, worsen, or persist. Thank you for allowing us to be part of your care. HPI General Mode of arrival: ambulatory . Date/Time Provider Initiated Documentation: 06/28/24 13:47 . Limitations to Documentation: no limitations . Information obtained by: patient, family and old records reviewed . HPI Narrative: HPI: This is a 69-year-old male patient with a past medical history significant for hypertension, hyperlipidemia, Crohn's disease, and a mitral valve issue who is presenting for evaluation of chest pain. The patient reports that he is quite active at baseline, went on a bike ride earlier this week and had some chest pain, and then started to have chest pain again yesterday after a walk. He states that his chest pain has improved some, it was very severe for the first few hours and then decreased, now a 5 out of 10. Does radiate into his back and his left arm. The patient reports that he tried a Tylenol yesterday for his pain, tried some deep breathing and mindfulness, without significant improvement. The patient reports his last stress test was in the , but he has not been diagnosed with any ischemic cardiac disease. States that he has been in his normal state of health, without recent fever, illness, or injury. He has a remote history of costochondritis, and had an episode in January of this year of chest pain after recovering from COVID that resolved spontaneously. The patient reports that his chest pain is not reproducible with movement, palpation, or deep breath. He has not noted any positions that worsen his pain, though he does feel better when he lies down and rests. Has noted some generalized weakness but denies focal weakness, numbness, or tingling. Denies shortness of breath, has not had nausea/vomiting that prevents him from eating and drinking, no changes in bowel or bladder habits. He has been taking his medication as prescribed without recent dosing changes. Exam: Gen: Awake and alert, in no apparent distress HEENT: Non-icteric sclera Neck: Supple Lungs: No apparent respiratory distress, normal respiratory effort. Lung sounds clear and equal bilaterally without wheezes, rhonchi, rales CV: Appears well perfused, heart with regular rate and rhythm, no murmurs auscultated, strong and symmetrical distal pulses with the exception of the left pedal pulse which is difficult to palpate Abdomen: Non-distended, soft, nontender MSK: Moves 4 extremities without apparent limitation in ROM. No peripheral edema, no unilateral calf swelling or tenderness. Skin: Visualized skin without rashes, cyanosis. Neuro: Normal Gait, no obvious focal deficits or facial asymmetry. Speaks in full, clear sentences. Psych: Appropriate for situation. MDM: This is a 69-year-old male patient presenting for evaluation of chest pain. My differential includes but is not limited to ACS including STEMI, NSTEMI, unstable angina, certainly considered arrhythmia, pericarditis/myocarditis, aortic pathology. Considered pulmonary abnormalities including pneumonia, bronc hitis, pleural effusion, pulmonary edema. No focal lung findings to significantly increase my concern for reactive airway disease or pneumothorax. The patient is without tachycardia, hypoxia, or a pleuritic component to his pain to significantly increase my concern for pulmonary embolism. He has no GI symptoms or vomiting to suggest Boerhaave's, esophagitis, peptic ulcer disease, pancreatitis. Considered musculoskeletal pathologies including costochondritis, chest wall pain. I will provide the patient with a full dose of aspirin, and obtain laboratory studies to include CBC, CMP, magnesium, troponin, and obtain a chest x-ray. ED Course: I reviewed the patient's EKG, which shows a normal sinus rhythm with a first-degree heart block, isolated Q waves in lead III, but no ST segment parra ges or STEMI. Rate of 92 slightly increased from prior, which was obtained in 2021. I independently interpreted the patient's chest x-ray, which shows no significant abnormalities such as mediastinal widening, pulmonary normalities which might explain the patient's symptoms. I independently interpreted the laboratory studies, which show no significant leukocytosis, anemia, or thrombocytopenia. The chemistry panel is without evidence of electrolyte abnormality, kidney dysfunction, or liver injury. Lipase is low, initial troponin 4. I performed a bedside echo as noted below, slightly difficult windows though there is no appreciable pericardial effusion, LV dysfunction or other significant abnormalities on my limited bedside exam. The patient reports that his symptoms are improving. The patient's history and age do increase his risk for cardiac event, though the normal troponin and EKG are reassuring. He reports that he has the ability to follow-up with cardiology at the [facility] to undergo stress testing and echo. He is greatly desiring of discharge to home and we had an extended discussion regarding return precautions. He has purchased a baby aspirin and was counseled on the appropriate dose to take if he experiences a recurrence of his chest pain. At this time, the patient has had a full medical evaluation and is safe for discharge to home. They are hemodynamically stable, ambulatory, and tolerating PO. They are understanding of the follow-up plan and return precautions. They left our facility without incident. Sridevi Chavez MD Related Data Home Medications ?Medication ?Instructions ?Recorded ?Confirmed atorvastatin 40 mg tablet 40 mg PO DAILY 09/12/18 06/28/24 hydrochlorothiazide 25 mg tablet 25 mg PO DAILY 09/12/18 06/28/24 lisinopril 20 mg tablet 20 mg PO DAILY 09/12/18 06/28/24 nortriptyline 50 mg capsule 150 mg PO HS 09/12/18 06/28/24 trazodone 100 mg tablet 300 mg PO DAILY 09/12/18 06/28/24 ondansetron 4 mg disintegrating 4 mg PO Q8H #14 tabs 07/24/21 06/28/24 tablet tamsulosin 0.4 mg capsule (Flomax) 0.4 mg PO DAILY 01/09/24 06/28/24 vedolizumab 108 mg/0.68 mL 108 mg subcut Q2W 01/09/24 06/28/24 subcutaneous pen injector (Entyvio Pen) risperidone 0.5 mg tablet 0.5 mg PO HS 06/28/24 06/28/24 (Risperdal) Previous Rx's ?Medication ?Instructions ?Recorded ondansetron 4 mg disintegrating 4 mg PO Q8H #14 tabs 07/24/21 tablet Allergies Allergy/AdvReac Type Severity Reaction Status Date / Time No Known Allergies Allergy Verified 06/28/24 13:34 General Stated Complaint: Chest Pain MANINDER: 3 Course Vital Signs Vital signs: Vital Signs Temperature 36.6 C 06/28/24 13:28 Pulse 89 06/28/24 13:28 Respiratory Rate 22 06/28/24 13:28 Blood Pressure 166/70 H 06/28/24 13:28 Pulse Oximetry 98 06/28/24 13:28 Temperature 36.6 C 06/28/24 13:28 Pulse 89 06/28/24 13:28 Respiratory Rate 14 06/28/24 13:45 Respiratory Effort Short of Breath 06/28/24 13:45 Respiratory Depth Normal 06/28/24 13:45 Respiratory Pattern Normal 06/28/24 13:45 Blood Pressure 166/70 H 06/28/24 13:28 Blood Pressure Position Sitting 06/28/24 13:28 Pulse Oximetry 98 06/28/24 13:28 Oxygen Delivery Method Room Air 06/28/24 13:28 Oxygen Flow Rate 0 06/28/24 13:28 Pain Level 6 06/28/24 13:45 Medical Decision Making Quality:SDOH Health Related Social Needs: No Data to Display PFSH All Active Problems (Updated 06/28/24 @ 15:32 by Sridevi Chavez MD) Chest pain of uncertain etiology (Acute) Acute cholecystitis (Acute) Dehydration (Acute) Umbilical hernia (Acute) Elevated cholesterol (Chronic) HTN (hypertension) (Chronic) Depression (Chronic) Anxiety (Chronic) Cholelithiasis and acute cholecystitis without obstruction (Acute) Surgical History History of hernia repair History of sinus surgery History of hip surgery H/O shoulder surgery History of knee surgery Social History Smoking/Tobacco Use Status: Never Smoking risk assessment performed?: Yes Alcohol Intake: never Drug use: Never Substance use type: does not use Housing: house Do you feel safe at home: Yes Do you feel safe in your relationship?: Yes POCUS Exam (ED) Limited Cardiac Exam DATE OF EXAM: 06/28/24 TIME OF EXAM: 15:08 PROVIDER THAT PERFORMED THE STUDY: Sridevi Chavez IS THIS A REPEAT EXAM DURING THIS ENCOUNTER: no REASON FOR EXAM: Chest pain VISUALIZED STRUCTURES: Four Chambers and LVOT VIEW OBTAINED: Apical 4-Chamber, Parasternal long-axis, Parasternal short-axis and Subxiphoid PERTINENT FINDINGS/IMPRESSION: No apparent abnormalities INCIDENTAL FINDINGS: Slightly difficult windows Exam complete
[2024-06-28 14:07] LABS: Abs Immature Grans 0.04 10^3/uL (0.0-0.06); Absolute Basophil Count 0.07 10^3/uL (0.0-0.2); Absolute Eosinophil Count 0.07 10^3/uL (0.0-0.7); Absolute Lymphocyte Count 2.68 10^3/uL (1.2-3.4); Absolute Monocyte Count 0.55 10^3/uL (0.1-0.8); Absolute Neutrophil Count 6.18 10^3/uL (1.2-6.7); Basophils % 0.7 %; Eosinophils % 0.7 %; HCT 48.9 % (40.0-50.0); HGB 16.8 g/dL (13.5-17.5); Immature Grans % 0.4 %; Lymphocytes % 27.9 %; MCHC 34.4 % (32.0-36.0); MCV 90 fL (80-95); MPV 9.1 fL (8.0-11.0); Monocytes % 5.7 %; Neutrophils % 64.6 %; Platelet Count 315 10^3/uL (130-400); RBC 5.42 10^6/uL (4.36-5.78); RDW 11.7 % (11.8-14.1); RDW-SD 38.7 fL; WBC 9.59 10^3/uL (4.4-10.8)
[2024-06-28] MEDS: Aspirin 81 MG CHEW 324 MG CH (14:08)
[2024-06-28 14:33] LABS: ALT 43 U/L (16-63); AST 27 U/L (15-37); Albumin 4.2 g/dL (3.4-5.0); Alkaline Phosphatase 75 U/L (46-116); Anion Gap 7.7 mmol/L (3-11); BUN 15 mg/dL (7-18); Bilirubin, Total 0.72 mg/dL (0.2-1.0); CO2 32.3 mmol/L (21.0-32.0); CREATININE 1.1 mg/dL (0.70-1.30); Calcium 9.7 mg/dL (8.5-10.1); Chloride 100 mmol/L (98-107); Estimated GFR 73.12 (mL/min/1.73m2); Glucose 129 mg/dL (74-106); Lipase 25 U/L (<78); Magnesium 1.9 mg/dL (1.8-2.4); Potassium 3.7 mmol/L (3.5-5.1); Sodium 140 mmol/L (136-145); Total Protein 8.6 g/dL (6.4-8.2); Troponin I 4 ng/L (<or=76)
[2024-06-28 15:20] LABS: Troponin I 4 ng/L (<or=76)
== END 2024-06-28 16:04 | disposition home or self-care (01) ==
PROVIDERS: Emergency Provider Emergency Medicine
DX: R07.9 Chest pain, unspecified (principal); I10 Essential (primary) hypertension; E78.00 Pure hypercholesterolemia, unspecified
CPT/HCPCS: 36415; 80053; 83690; 93005; 93308; 99285; 71046; 83735; 84484; 85025; 93010; 99284